=== PATIENT | male | born 1945 | race Caucasian/White ===

== ENCOUNTER 2017-02-14 10:00 | Outpatient (RCR) | payer OTHER, SELFPAY | END 2017-02-14 23:59 | LOC: PT 10:00 | PROVIDERS: Visit Provider Otolaryngology | DX: I89.0 Lymphedema, not elsewhere classified (principal); C01 Malignant neoplasm of base of tongue | CPT/HCPCS: 97140; 97161 ==

== ENCOUNTER 2017-05-05 11:00 | Outpatient (RCR) | payer OTHER, SELFPAY | END 2017-05-05 11:01 | disposition home or self-care (01) | LOC: PT 11:00 | PROVIDERS: PCP Internal Medicine; Visit Provider Otolaryngology | DX: I89.0 Lymphedema, not elsewhere classified (principal); C01 Malignant neoplasm of base of tongue | CPT/HCPCS: 97140 ==

== ENCOUNTER 2017-10-13 10:00 | Outpatient (RCR) | payer OTHER, SELFPAY | END 2017-10-13 10:01 | disposition home or self-care (01) | LOC: PT 10:00 | PROVIDERS: PCP Internal Medicine; Visit Provider Internal Medicine | DX: I89.0 Lymphedema, not elsewhere classified (principal) | CPT/HCPCS: 97140; 97163 ==

== ENCOUNTER 2019-04-30 11:00 | Outpatient (RCR) | payer OTHER, SELFPAY | END 2019-04-30 12:05 | disposition home or self-care (01) | LOC: PT 11:00 | PROVIDERS: Visit Provider Internal Medicine | DX: I89.0 Lymphedema, not elsewhere classified (principal); M43.6 Torticollis | CPT/HCPCS: 97140; 97163; 97164 ==

== ENCOUNTER 2019-11-27 11:00 | Outpatient (RCR) | payer OTHER, SELFPAY | END 2019-11-27 11:53 | disposition home or self-care (01) | LOC: PT 11:00 | DX: I89.0 Lymphedema, not elsewhere classified (principal) | CPT/HCPCS: 97140; 97162; 97164 ==